=== PATIENT | male | born 1990 | race African-American/Black ===

== ENCOUNTER 2018-06-13 08:51 | Emergency (ER) | payer BC ==
--- NOTE | 2018-06-13 09:54 | RAD ---
RIGHT ANKLE 3 VIEWS: HISTORY: Right ankle injury. FINDINGS: Ankle mortis is intact. Talar dome maintained. No acute fracture, dislocation, or aggressive osseou s erosions. IMPRESSION: No acute osseous abnormalities are demonstrated. POS: ITA
== END 2018-06-13 09:47 | disposition home or self-care (01) ==
LOC: ERS 08:51
DX: S93.401A Sprain of unspecified ligament of right ankle, initial encounter (principal); F17.210 Nicotine dependence, cigarettes, uncomplicated; X58.XXXA Exposure to other specified factors, initial encounter; Y93.67 Activity, basketball

== ENCOUNTER 2019-05-06 19:12 | Emergency (ER) | payer OTHER | END 2019-05-06 20:06 | disposition home or self-care (01) | LOC: ERS 19:12 | DX: H10.9 Unspecified conjunctivitis (principal); F17.210 Nicotine dependence, cigarettes, uncomplicated | CPT/HCPCS: 99283 ==

== ENCOUNTER 2019-12-21 13:14 | Emergency (ER) | payer OTHER, SELFPAY | END 2019-12-21 13:55 | disposition home or self-care (01) | LOC: ERS 13:14 | DX: Z20.828 Contact with and (suspected) exposure to other viral communicable diseases (principal); F17.210 Nicotine dependence, cigarettes, uncomplicated | CPT/HCPCS: 99283 ==

== ENCOUNTER 2020-06-24 16:49 | Emergency (ER) | payer SELFPAY ==
[2020-06-24 17:10] LABS: Bacteria/HPF None Seen HPF (None Seen); Bilirubin Negative (Negative); Blood, Urine Negative (Negative); Clarity Clear (Clear); Glucose, Urine (Dipstick) Normal (Negative); Ketone, Urine Negative (Negative); Leukocyte 25 Leu/uL (Negative); Nitrite Negative (Negative); Protein, Urine (Dipstick) Negative (Neg-Trace); RBC/HPF 0-3 HPF (0-3); Specific Gravity, Urine 1.026 (1.002-1.036); Squamous Epithelial None Seen HPF (0-3); Urobilinogen Normal mg/dL (Less than 2)
[2020-06-24] MEDS ORDERED: Lidocaine 1% PF 5 ML VIAL ONE (17:18)
[2020-06-24] MEDS ORDERED: cefTRIAXone\\ROCEPHIN 250 MG VIAL ONE (17:18)
[2020-06-24] MEDS ORDERED: Azithromycin 250 MG TAB ONE (17:18)
[2020-06-25 20:33] LABS: Chlam.trachomatis by PCR,Urine Not Detected (NotDetected)
== END 2020-06-24 17:35 | disposition home or self-care (01) ==
LOC: ERS 16:49
DX: A64 Unspecified sexually transmitted disease (principal); F17.210 Nicotine dependence, cigarettes, uncomplicated
CPT/HCPCS: 81003; 81015; 87491; 87591; 96372; 99283; J0696

== ENCOUNTER 2020-07-25 16:42 | Emergency (ER) | payer SELFPAY ==
[2020-07-26 02:07] LABS: SARS-CoV-2 MS2 Positive; SARS-CoV-2 N Gene Negative; SARS-CoV-2 S Gene Negative; SARS-CoV-2 by NAA Not Detected (NotDetected); SARS-CoV-2 orf1ab Negative
== END 2020-07-25 17:50 | disposition home or self-care (01) ==
LOC: ERS 16:42
DX: Z20.822 Contact with and (suspected) exposure to COVID-19 (principal)
CPT/HCPCS: 87635; 99283; U0003

== ENCOUNTER 2023-08-16 17:33 | Emergency (ER) | payer OTHER ==
[2023-08-16] MEDS ORDERED: Ondansetron PF 4 MG/2 ML Vial ONE (19:57)
[2023-08-16] MEDS ORDERED: Ketorolac Tromethamine 30 MG (1 mL) VIAL ONE (19:57)
[2023-08-16] MEDS ORDERED: cefTRIAXone (ROCEPHIN) 500 MG VIAL ONE (20:45)
[2023-08-16] MEDS ORDERED: Lidocaine 1% MPF 2 ML VIAL ONE (20:45)
[2023-08-17 17:08] LABS: Chlam.trachomatis by PCR,Urine Not Detected (NotDetected); GC N.gonorrhoeae PCR,UrineVOID Not Detected (NotDetected)
== END 2023-08-16 21:10 | disposition home or self-care (01) ==
LOC: ERS 17:33
DX: R51.9 Headache, unspecified (principal); F17.210 Nicotine dependence, cigarettes, uncomplicated
CPT/HCPCS: 87491; 87591; 96361; 96372; 96374; 96375; J0696; J1885; J2405